=== PATIENT | male | born 1940 | race Caucasian/White ===

== ENCOUNTER 2017-06-24 08:05 | Observation (INO) | payer MEDICARE, OTHER ==
[~2017-06-24] VITALS: Ht 188 cm; Wt 97.5 kg
[~2017-06-24 08:05] MED LIST: ASPIR-LOW81 MG PO; CHOLESTEROL MED; HCTZ; LISINOPRIL; NEXIUM PO; VERAPAMIL
[2017-06-24 09:00] LABS: BASO % 0.2 % (0.0-2.0); EOS % 0.2 % (0-4.0); GRAN # 7.1 (1.4-6.5); GRAN % 83.4 % (42.2-75.2); HEMATOCRIT 38.1 % (42.0-52.0); HEMOGLOBIN 13.1 g/dl (13.5-18.0); LYMPH # 0.8 (1.2-3.4); LYMPH % 9.4 % (20.0-51.0); MEAN CELL VOLUME 100 fl (80.0-100.0); MEAN CORPUSCULAR HEMOGLOBIN 34 pg (27.0-31.0); MEAN CORPUSCULAR HGB CONC 34 g/dl (33.0-37.0); MEAN PLATELET VOLUME 11.5 fl (7.4-10.4); MONO # 0.5 (0.1-0.6); MONO % 6.3 % (1.7-9.3); PLATELET COUNT 74 K/mm3 (130-400); RED BLOOD COUNT 3.82 M/mm3 (4.20-5.60); REDCELL DISTRIBUTION WIDTH-CV 14.6 % (11.5-14.5); WHITE BLOOD COUNT 8.5 K/mm3 (4.8-10.8)
[2017-06-24 09:20] LABS: ALBUMIN 4.6 gm/dL (3.5-5.0); BILIRUBIN,TOTAL 2.8 mg/dL (0.0-1.0); C-REACTIVE PROTEIN 1.2 mg/dL (0.0-0.9); CALCIUM 9.5 mg/dL (8.4-10.2); CREATININE, serum 1.56 mg/dL (0.66-1.25); POTASSIUM 4.3 mmol/L (3.4-5.0); TOTAL PROTEIN 7.3 gm/dL (6.4-8.2)
[2017-06-24] MEDS ORDERED: PRIL40 PO (10:08)
[2017-06-24] MEDS ORDERED: HCTZ 25MG TAB25 MG PO (10:08)
[2017-06-24] MEDS ORDERED: ZESTRIL 20MG TA20 MG PO (10:09)
[2017-06-24] MEDS ORDERED: VERELAN240 MG PO (10:10)
[2017-06-24] MEDS ORDERED: ZOCOR 20MG20 MG PO (10:14)
[2017-06-24] MEDS ORDERED: UROCIT-K 5540 MG/TAB PO (10:15)
[2017-06-24] MEDS ORDERED: PRESERVISION1 SGL PO (10:15)
[2017-06-24] MEDS ORDERED: GLUCOSAMINE SU500 M2 PO (10:16)
[2017-06-24] MEDS ORDERED: NATURE'S BLEND100 M2 PO (10:16)
[2017-06-24 10:28] LABS: PH 7 (5-8); SQUAMOUS EPITHELIAL None Seen /hpf; URINE APPEARANCE Clear; URINE BACTERIA None Seen /hpf; URINE BILIRUBIN Negative (NEGATIVE); URINE BLOOD 2+ (NEGATIVE); URINE COLOR Yellow; URINE GLUCOSE Negative (NEGATIVE); URINE KETONE Negative (NEGATIVE); URINE RBC 20-50 /hpf
[2017-06-24 11:34] VITALS: BP 140/73; PULSE 67; TEMP 99.3
[2017-06-24 13:51] VITALS: BP 138/67; PULSE 59; TEMP 98.5
[2017-06-24 20:00] VITALS: BP 122/64; PULSE 59; TEMP 99
[2017-06-24 20:15] VITALS: BP 122/64; PULSE 58
[2017-06-24 20:30] VITALS: BP 108/75; PULSE 67
[2017-06-24 20:45] VITALS: BP 118/70; PULSE 69
== END 2017-06-24 20:55 | disposition home or self-care (01) ==
LOC: COL.ER 08:05 → SURG 10:41
PROVIDERS: Family Medicine
DX: N20.1 Calculus of ureter (principal); I10 Essential (primary) hypertension; E78.00 Pure hypercholesterolemia, unspecified; M19.90 Unspecified osteoarthritis, unspecified site; K21.9 Gastro-esophageal reflux disease without esophagitis; G47.33 Obstructive sleep apnea (adult) (pediatric)
CPT/HCPCS: C1769; C1894; C2617; G0378; J0690; J1100; J2270; J2405; J2704; J3010; J7030; Q9967

== ENCOUNTER 2018-02-19 13:10 | Day surgery (SDC) | payer MEDICARE, OTHER ==
[~2018-02-19] VITALS: Ht 188 cm; Wt 112.3 kg
[~2018-02-19 13:10] MED LIST changes: -ASPIR-LOW81 MG PO; +ASPIRIN E.C. 8181 MG PO; +GLUCOSAMINE & C1 CA2 PO; +HCTZ 25MG TAB25 MG PO; +NATURE'S BLEND100 M2 PO; +PRESERVISION1 SGL PO; +PRIL40 PO; +UROCIT-K 5540 MG/TAB PO; +VERELAN240 MG PO; +ZESTRIL 20MG TA20 MG PO; +ZOCOR 20MG20 MG PO
[2018-02-19] MEDS ORDERED: MULTIPLE VITAMI1 CAP PO (14:08)
[2018-02-19] MEDS ORDERED: TYLENOL 500MG500 MG PO (14:09)
[2018-02-19] MEDS ORDERED: ZYRTEC 10MG10 MG PO (14:09)
[2018-02-19] MEDS ORDERED: HYLAND LEG CRAMPS PO (14:10)
[2018-02-19 14:11] VITALS: BP 129/69; PULSE 61; TEMP 98.2
[2018-02-19 18:28] VITALS: BP 129/66; PULSE 50; TEMP 98.1
[2018-02-19 19:01] VITALS: BP 134/66; PULSE 52
[2018-02-19 19:41] VITALS: BP 115/55; PULSE 54
[2018-02-19 20:11] VITALS: BP 124/59; PULSE 56; TEMP 98
== END 2018-02-19 20:25 | disposition home or self-care (01) ==
LOC: SDCO 13:10 → SURG 18:05 → SDCO 20:25
DX: N20.0 Calculus of kidney (principal); I10 Essential (primary) hypertension; K21.9 Gastro-esophageal reflux disease without esophagitis; M19.90 Unspecified osteoarthritis, unspecified site; G47.33 Obstructive sleep apnea (adult) (pediatric); Z79.82 Long term (current) use of aspirin; Z87.891 Personal history of nicotine dependence; Z85.820 Personal history of malignant melanoma of skin; Z82.49 Family history of ischemic heart disease and other diseases of the circulatory system; Z83.511 Family history of glaucoma
CPT/HCPCS: OP; C1769; C1894; C2617; J0690; J1100; J1885; J2405; J2704; J3010; J7120

== ENCOUNTER 2018-03-05 14:17 | Day surgery (SDC) | payer MEDICARE, OTHER ==
[~2018-03-05] VITALS: Ht 185.4 cm; Wt 110.1 kg
[~2018-03-05 14:17] MED LIST changes: +HYLAND LEG CRAMPS PO; +MULTIPLE VITAMI1 CAP PO; +TYLENOL 500MG500 MG PO; +ZYRTEC 10MG10 MG PO
[2018-03-05 14:56] VITALS: BP 113/66; PULSE 64; TEMP 97.4
[2018-03-05 18:15] VITALS: BP 121/56; PULSE 62
[2018-03-05] MEDS ORDERED: PYRIDIUM 100MG100 MG PO (18:28)
[2018-03-05] MEDS ORDERED: NORCO 325 MG-51 TAB PO (18:28)
[2018-03-05] MEDS ORDERED: COLACE 100100 MG/CAP PO (18:29)
[2018-03-05 18:30] VITALS: BP 114/55; PULSE 60
[2018-03-05 18:45] VITALS: BP 118/66; PULSE 57
[2018-03-05 19:06] VITALS: BP 104/65; PULSE 72; TEMP 98.5
== END 2018-03-05 19:35 | disposition home or self-care (01) ==
LOC: SDCO 14:17
DX: N20.0 Calculus of kidney (principal); Z79.82 Long term (current) use of aspirin; I10 Essential (primary) hypertension; R20.2 Paresthesia of skin; G47.33 Obstructive sleep apnea (adult) (pediatric); Z79.899 Other long term (current) drug therapy; Z87.891 Personal history of nicotine dependence; Z85.820 Personal history of malignant melanoma of skin
CPT/HCPCS: C1769; C1894; C2617; J0690; J2704; J3010; J7120

== ENCOUNTER 2019-02-08 12:43 | Observation (INO) | payer MEDICARE, OTHER ==
[~2019-02-08] VITALS: Ht 188 cm; Wt 205.2 kg
[~2019-02-08 12:43] MED LIST changes: +COLACE 100100 MG/CAP PO; +NORCO 325 MG-51 TAB PO; +PYRIDIUM 100MG100 MG PO; +UROCIT-K 1010 MEQ PO; -UROCIT-K 5540 MG/TAB PO
[2019-02-08 13:19] LABS: BASO % 0.5 % (0.0-2.0); EOS # 0.3 (0.0-0.7); EOS % 4.5 % (0-4.0); GRAN # 3.6 (1.4-6.5); GRAN % 59.7 % (42.2-75.2); LYMPH # 1.1 (1.2-3.4); LYMPH % 18.7 % (20.0-51.0); MEAN CELL VOLUME 96 fl (80.0-100.0); MEAN CORPUSCULAR HEMOGLOBIN 34 pg (27.0-31.0); MEAN CORPUSCULAR HGB CONC 35 g/dl (33.0-37.0); MEAN PLATELET VOLUME 9.9 fl (7.4-10.4); MONO % 16.1 % (1.7-9.3); PLATELET COUNT 272 K/mm3 (130-400); RED BLOOD COUNT 3.53 M/mm3 (4.20-5.60); REDCELL DISTRIBUTION WIDTH-CV 15.6 % (11.5-14.5)
[2019-02-08 13:34] LABS: ALBUMIN 4.3 gm/dL (3.5-5.0); BILIRUBIN,TOTAL 1.9 mg/dL (0.0-1.0); C-REACTIVE PROTEIN 4.5 mg/dL (0.0-0.9); CALCIUM 9.7 mg/dL (8.4-10.2); CREATININE, serum 1.71 (0.66-1.25); POTASSIUM 4.2 mmol/L (3.4-5.0); TOTAL PROTEIN 7.1 gm/dL (6.4-8.2)
[2019-02-08 14:03] LABS: COLLECTION METHOD CLEAN CATCH
[2019-02-08 14:15] LABS: HYALINE CAST >12 /lpf; MUCOUS Present /lpf; PH 5 (5-8); SQUAMOUS EPITHELIAL None Seen /hpf; URINE APPEARANCE Clear; URINE BACTERIA None Seen /hpf; URINE BILIRUBIN Positive (NEGATIVE); URINE BLOOD Negative (NEGATIVE); URINE COLOR Amber; URINE GLUCOSE Negative (NEGATIVE); URINE KETONE Negative (NEGATIVE); URINE LEUKOCYTE ESTERASE Negative (NEGATIVE); URINE NITRATE Negative (NEGATIVE); URINE PROTEIN(semi-quant) Negative (NEGATIVE); URINE RBC 0-2 /hpf; URINE UROBILINOGEN >=4.0 mg/dL (NEGATIVE)
[2019-02-08] MEDS ORDERED: FOLIC ACID0.4 MG PO (15:18)
[2019-02-08] MEDS ORDERED: NAPROSYN500 MG PO (15:19)
[2019-02-08] MEDS ORDERED: FERRO-TIME325 MG PO (15:20)
[2019-02-08] MEDS ORDERED: MIRALAX PA17 GM/Dose PO (15:22)
[2019-02-08 16:59] LABS: INR 1.1 (0.8-3.0)
[2019-02-08 20:10] VITALS: BP 108/45; PULSE 71; TEMP 98.2
[2019-02-08] MEDS ORDERED: ASPI325T6 PO (21:21)
--- NOTE | 2019-02-08 23:00 | NUR ---
PT IN BED WITH HOB AT 15 DEGREE ANGLE, HAS MILD ABDOMINAL PAIN. PT HAS BEEN UP TO THE BATHROOM A FEW TIMES WITH DIARRHEA, GOT STOOL SAMPLE FOR LAB. STOOL HAD BLOOD IN IT. PT RESTING IN BED WITH CALL LIGHT WITHIN REACH. TYLENOL GIVEN FOR ABDOMINAL PAIN.
[2019-02-08 23:16] VITALS: BP 107/56; PULSE 73; TEMP 99
--- NOTE | 2019-02-09 01:14 | NUR ---
PT SLEEPING/RESTING WITH NO S/S OF PAIN OR DISCOMFORT NOTED. CALL LIGHT WITHIN REACH.
[2019-02-09 04:14] VITALS: BP 106/53; PULSE 74; TEMP 98.6
[2019-02-09 06:26] LABS: BASO % 0.7 % (0.0-2.0); EOS # 0.2 (0.0-0.7); EOS % 5.5 % (0-4.0); GRAN # 2.5 (1.4-6.5); GRAN % 56.3 % (42.2-75.2); HEMOGLOBIN 10.1 g/dl (13.5-18.0); LYMPH % 21.8 % (20.0-51.0); MEAN CELL VOLUME 96 fl (80.0-100.0); MEAN CORPUSCULAR HEMOGLOBIN 34 pg (27.0-31.0); MEAN CORPUSCULAR HGB CONC 35 g/dl (33.0-37.0); MEAN PLATELET VOLUME 9.9 fl (7.4-10.4); MONO # 0.7 (0.1-0.6); MONO % 15.2 % (1.7-9.3); PLATELET COUNT 199 K/mm3 (130-400); RED BLOOD COUNT 2.96 M/mm3 (4.20-5.60); REDCELL DISTRIBUTION WIDTH-CV 15.4 % (11.5-14.5)
[2019-02-09 06:34] LABS: CALCIUM 8.7 mg/dL (8.4-10.2); CREATININE, serum 1.34 (0.66-1.25)
[2019-02-09 06:36] LABS: HEMATOCRIT 28.5 % (42.0-52.0)
--- NOTE | 2019-02-09 07:25 | NUR ---
UNEVENTFUL NIGHT, PT WAS UP A FEW TIMES BECAUSE HE STILL HAS DIARRHEA. PT ADVISES THAT HE CANNOT SEE WELL. ALSO HE IS ON DAY 21 OF POST KNEE REPLACEMENT SURGERY. PT USES A WALKER TO AMBULATE AND WILL GO TO A CANE NEXT WEEK. TYLENOL WAS GIVEN FOR PAIN REQUESTED. PAIN AT 3/10 IN LOWER ABDOMEN THAT IS CRAMPY. NO FURTHER NEEDS, CALL LIGHT WITHIN REACH.
[2019-02-09 08:48] VITALS: BP 124/49; PULSE 75; TEMP 98.2
--- NOTE | 2019-02-09 08:49 | NUR ---
Pt is awake and A/Ox4, resting in bed watching TV. He denies pain at this time. IVF are infusing into right AC without difficulty. He does report having continued loose stools last night and this morning but feels like they have slowed in frequency. Pt denies any other needs, will monitor.
--- NOTE | 2019-02-09 10:38 | NUR ---
Pt is sleeping soundly in bed.
[2019-02-09 11:09] VITALS: BP 120/58; PULSE 76; TEMP 98.6
--- NOTE | 2019-02-09 13:18 | NUR ---
Patient lives at home ([facility] with his (Renetta) and plans to return home upon discharge. Patient is retired from the [employer], and he is moderately indpendent with daily living activities with support from his as needed. Patient uses a walker for mobility assistance as needed, his primary care physician is Dr. Jaron Quinonez, his pharmacy is [facility], and he does have advance directives completed. No further needs and social media coordinator will follow as needed.
[2019-02-09 14:22] LABS: HEMOGLOBIN 10.2 g/dl (13.5-18.0)
[2019-02-09 14:24] LABS: HEMATOCRIT 28.8 % (42.0-52.0)
[2019-02-09 16:12] VITALS: BP 128/64; PULSE 73; TEMP 98.6
--- NOTE | 2019-02-09 16:51 | NUR ---
Pt has had an overall uneventful shift. He reports that the protonix given to him "helped a lot." Rating pain a 2/10. Tolerating PO. at bedside, denies any other needs.
--- NOTE | 2019-02-09 20:00 | NUR ---
Shift assessment complete. Pt resting in bed, awake, a&o, cooperative c cares. Pt reports continued c/o diarrhea; pt assisted c shower at this time due to incontinence pt describes as "a blow out". Pt denies nausea, abd pain or other c/o. INT patent. Pt denies further needs. Call light in reach, wi at bedside. Will monitor.
[2019-02-09 21:18] VITALS: BP 127/65; PULSE 74; TEMP 98.1
[2019-02-09 21:56] LABS: HEMOGLOBIN 10.6 g/dl (13.5-18.0)
[2019-02-09 22:11] LABS: HEMATOCRIT 30.6 % (42.0-52.0)
[2019-02-10] VITALS (9 sets, daily range): BP systolic 116–130; BP diastolic 56–69; PULSE 62–70; TEMP 97–99.1
[2019-02-10 02:16] LABS: HEMATOCRIT 28.4 % (42.0-52.0); HEMOGLOBIN 9.9 g/dl (13.5-18.0)
--- NOTE | 2019-02-10 05:59 | NUR ---
Pt resting in bed, condition unchanged. Pt has rested well this shift c very few needs. Diarrhea x2 episodes reported, incontinent x1. No needs at this time. Call light in reach.
[2019-02-10 06:19] LABS: BASO % 0.7 % (0.0-2.0); EOS # 0.3 (0.0-0.7); EOS % 6.3 % (0-4.0); GRAN # 2.4 (1.4-6.5); GRAN % 53.4 % (42.2-75.2); LYMPH # 1.2 (1.2-3.4); LYMPH % 27.3 % (20.0-51.0); MEAN CELL VOLUME 97 fl (80.0-100.0); MEAN CORPUSCULAR HGB CONC 35 g/dl (33.0-37.0); MEAN PLATELET VOLUME 9.8 fl (7.4-10.4); MONO # 0.5 (0.1-0.6); MONO % 11.4 % (1.7-9.3); PLATELET COUNT 192 K/mm3 (130-400); RED BLOOD COUNT 2.88 M/mm3 (4.20-5.60)
[2019-02-10 06:32] LABS: HEMATOCRIT 27.9 % (42.0-52.0); HEMOGLOBIN 9.8 g/dl (13.5-18.0); MEAN CORPUSCULAR HEMOGLOBIN 34 pg (27.0-31.0)
[2019-02-10 06:39] LABS: CALCIUM 8.7 mg/dL (8.4-10.2); CREATININE, serum 1.12 (0.66-1.25)
--- NOTE | 2019-02-10 11:05 | NUR ---
Initial visit; Patient thanked Business Services Vice President for looking in on him and letting his evangelical family and Destination Imagination Coordinator know of his hospitalization.
--- NOTE | 2019-02-10 15:20 | NUR ---
Patient left for EGD procedure via stretcher.
--- NOTE | 2019-02-10 16:15 | NUR ---
Patient returned from procedure. 15 min vital sign checks initiated.
--- NOTE | 2019-02-10 20:09 | NUR ---
PT AMBULATING IN ROOM. PT ATE A BANANA BECAUSE HIS TOLD HIM HE NEEDED IT. PT'S IV WAS LEAKING, DC, CATHETER INTACT, APPLIED PRESSURE TILL BLEEDING STOPPED, AND PUT PROTECTIVE DRSG ON. STARTED NEW 20G IV IN RIGHT FOREARM, X1 ATTEMPT WITH NO DIFFICULTIES AND PT TOLERATED WELL. PT IN RECLINER AT THIS TIME WITH NO FURTHER NEEDS AND CALL LIGHT WITHIN REACH. NO PAIN IN ABDOMEN.
--- NOTE | 2019-02-11 00:23 | NUR ---
PT REQUESTED THAT IV FLUIDS NOT RUN WHILE HE IS TRYING TO SLEEP AND THAT WE CAN PUT IT BACK ON AT 0700. IV FLUIDS STOPPED AT THIS TIME PER PT'S REQUEST.
[2019-02-11 03:56] VITALS: BP 144/61; PULSE 64; TEMP 98.3
[2019-02-11 07:34] LABS: BASO % 0.7 % (0.0-2.0); EOS # 0.3 (0.0-0.7); EOS % 7.4 % (0-4.0); GRAN # 2.5 (1.4-6.5); HEMOGLOBIN 10.1 g/dl (13.5-18.0); LYMPH # 1.3 (1.2-3.4); LYMPH % 27.5 % (20.0-51.0); MEAN CELL VOLUME 96 fl (80.0-100.0); MEAN CORPUSCULAR HEMOGLOBIN 34 pg (27.0-31.0); MEAN CORPUSCULAR HGB CONC 35 g/dl (33.0-37.0); MEAN PLATELET VOLUME 9.9 fl (7.4-10.4); MONO # 0.5 (0.1-0.6); PLATELET COUNT 203 K/mm3 (130-400); RED BLOOD COUNT 2.98 M/mm3 (4.20-5.60); REDCELL DISTRIBUTION WIDTH-CV 14.6 % (11.5-14.5)
[2019-02-11 07:36] LABS: HEMATOCRIT 28.5 % (42.0-52.0)
[2019-02-11 07:39] LABS: CALCIUM 8.7 mg/dL (8.4-10.2); CREATININE, serum 1.09 (0.66-1.25); POTASSIUM 3.8 mmol/L (3.4-5.0)
[2019-02-11 07:42] VITALS: BP 126/54; PULSE 65; TEMP 98.7
[2019-02-11] MEDS ORDERED: PROTONIX 40MG T40 MG PO (09:16)
[2019-02-11] MEDS ORDERED: IMODIUM 2MG CAPS2 MG PO (09:18)
--- NOTE | 2019-02-11 09:54 | NUR ---
Patient resting in bed on phone with upon entry. Assessment complete. Lung sounds clear, heart sounds normal. Bowel sounds present X4. Pulses strong bilaterally. Patient denies SOB, pain, dizziness. patient stated he had episode of diarrhea overnight and once this morning. "it wasn't like it has been." Patient is being discharged. Right forearm IV discontinued. Call light within reach. Patient is going to shower prior to discharge.
--- NOTE | 2019-02-11 12:45 | NUR ---
patient sitting in chair with at bedside. Discharge instructions discussed, all questions answered. Patient escorted out via wheelchair by aide. No other questions. INT IV discontinued, catheter tip intact, no complications.
[2019-02-11 16:10] LABS: HELICOBACTER PYLORI STOOL AG Negative (Negative)
== END 2019-02-11 12:40 | disposition home or self-care (01) ==
LOC: COL.ER 12:43 → MEDICAL 18:25
PROVIDERS: Emergency Medicine; Family Medicine; Nurse Practitioner; Physician Assistant; ADMIT Hospitalist
DX: K29.30 Chronic superficial gastritis without bleeding (principal); K92.1 Melena; D50.0 Iron deficiency anemia secondary to blood loss (chronic); E86.0 Dehydration; R19.7 Diarrhea, unspecified; E78.5 Hyperlipidemia, unspecified; I12.9 Hypertensive chronic kidney disease with stage 1 through stage 4 chronic kidney disease, or unspecified chronic kidney disease; N18.9 Chronic kidney disease, unspecified; Z96.659 Presence of unspecified artificial knee joint; F17.210 Nicotine dependence, cigarettes, uncomplicated
CPT/HCPCS: C9113; G0378; J2250; J2270; J2405; J3010; J7030

== ENCOUNTER → 2021-06-30 | Outpatient (CLI) | payer MEDICARE, OTHER ==
[~2021-06-30] MED LIST changes: +AMOXICILLIN 8751 TAB PO; +ARICEPT10 MG PO; +ASPI325T6 PO; +ASPIRIN 32325 MG/TAB PO; +FERRO-TIME325 MG PO; +FLONASEALLERGY NS; +FOLIC ACID0.4 MG PO; +IMODIUM 2MG CAPS2 MG PO; +LEXAPRO 5MG5 MG PO; +LODINE400 MG PO; +MIRALAX PA17 GM/Dose PO; +NAPROSYN500 MG PO; +PRINIVIL20 MG PO; +PROTONIX 40MG T40 MG PO; +SINGULAIR 110 MG/TAB PO; +VITAMIN C500 MG PO; +VITAMIN D 400400 IU PO
[2021-06-30 13:25] LABS: BASO # 0.1 (0.0-0.2); BASO % 0.8 % (0.0-2.0); EOS # 0.4 (0.0-0.7); EOS % 3.8 % (0-4.0); GRAN # 6.9 (1.4-6.5); GRAN % 72.3 % (42.2-75.2); HEMOGLOBIN 10.9 g/dl (13.5-18.0); LYMPH % 10.3 % (20.0-51.0); MEAN CELL VOLUME 95 fl (80.0-100.0); MEAN CORPUSCULAR HEMOGLOBIN 34 pg (27.0-31.0); MEAN CORPUSCULAR HGB CONC 36 g/dl (33.0-37.0); MEAN PLATELET VOLUME 10.8 fl (7.4-10.4); MONO # 1.1 (0.1-0.6); MONO % 11.9 % (1.7-9.3); PLATELET COUNT 309 K/mm3 (130-400); REDCELL DISTRIBUTION WIDTH-CV 15.7 % (11.5-14.5)
[2021-06-30 13:27] LABS: ALBUMIN 4.1 gm/dL (3.5-5.0); BILIRUBIN,TOTAL 2.5 mg/dL (0.0-1.0); CALCIUM 9.4 mg/dL (8.4-10.2); CREATININE, serum 2.83 (0.66-1.25); TOTAL PROTEIN 6.3 gm/dL (6.4-8.2)
[2021-06-30 13:33] LABS: HEMATOCRIT 30.5 % (42.0-52.0)
[2021-06-30 13:51] LABS: POTASSIUM 5.9 mmol/L (3.4-5.0)
[2021-06-30 15:23] LABS: ERYTHROCYTE SEDIMENTATION RATE 52 mm/hr (0-30)
[2021-06-30 17:39] LABS: CLOSTRIDIUM DIFF A/B NEG; CLOSTRIDIUM DIFF A/B INTERP No C.diff present
== END ==
LOC: ZCOL.LAB 13:13
PROVIDERS: Internal Medicine
DX: A09 Infectious gastroenteritis and colitis, unspecified (principal)

== ENCOUNTER 2021-07-01 21:55 | Inpatient (IN) | payer MEDICARE, OTHER ==
[~2021-07-01] VITALS: Ht 188 cm; Wt 106.8 kg
[~2021-07-01 21:55] MED LIST changes: -AMOXICILLIN 8751 TAB PO; -ARICEPT10 MG PO; -LODINE400 MG PO; -PRINIVIL20 MG PO
[2021-07-01 23:07] LABS: MEAN CELL VOLUME 94 fl (80.0-100.0); MEAN CORPUSCULAR HGB CONC 37 g/dl (33.0-37.0); MEAN PLATELET VOLUME 9.9 fl (7.4-10.4); PLATELET COUNT 242 K/mm3 (130-400); RED BLOOD COUNT 2.79 M/mm3 (4.20-5.60); REDCELL DISTRIBUTION WIDTH-CV 15.2 % (11.5-14.5)
[2021-07-01 23:08] LABS: HEMATOCRIT 26.2 % (42.0-52.0); HEMOGLOBIN 9.6 g/dl (13.5-18.0); MEAN CORPUSCULAR HEMOGLOBIN 34 pg (27.0-31.0)
[2021-07-01 23:19] LABS: ALBUMIN 3.8 gm/dL (3.5-5.0); BILIRUBIN,TOTAL 1.9 mg/dL (0.0-1.0); CALCIUM 8.7 mg/dL (8.4-10.2); CREATININE, serum 2.72 (0.66-1.25); POTASSIUM 5.4 mmol/L (3.4-5.0); TOTAL PROTEIN 6.4 gm/dL (6.4-8.2)
[2021-07-02 00:20] LABS: ANISOCYTOSIS 1+; BAND 6 % (0-10); BASOPHIL 1 % (0-2); EOSINOPHIL 6 % (0-4); LYMPHOCYTE 17 % (20.0-51.0); NEUTROPHILS 57 % (42.0-75.2); PLATELET ESTIMATE NORMAL (NORMAL)
[2021-07-02 05:29] LABS: MEAN CELL VOLUME 96 fl (80.0-100.0); MEAN CORPUSCULAR HGB CONC 36 g/dl (33.0-37.0); MEAN PLATELET VOLUME 10.2 fl (7.4-10.4); PLATELET COUNT 224 K/mm3 (130-400); RED BLOOD COUNT 2.25 M/mm3 (4.20-5.60); REDCELL DISTRIBUTION WIDTH-CV 15.2 % (11.5-14.5)
[2021-07-02 05:33] LABS: HEMATOCRIT 21.6 % (42.0-52.0); HEMOGLOBIN 7.7 g/dl (13.5-18.0); MEAN CORPUSCULAR HEMOGLOBIN 34 pg (27.0-31.0)
[2021-07-02 05:38] LABS: CALCIUM 8.2 mg/dL (8.4-10.2); CREATININE, serum 2.29 (0.66-1.25); POTASSIUM 5.1 mmol/L (3.4-5.0)
[2021-07-02 06:44] LABS: BAND 8 % (0-10); BASOPHIL 2 % (0-2); EOSINOPHIL 7 % (0-4); LYMPHOCYTE 18 % (20.0-51.0); NEUTROPHILS 57 % (42.0-75.2)
[2021-07-02 06:45] LABS: PLATELET ESTIMATE NORMAL (NORMAL)
[2021-07-02 06:47] LABS: ANISOCYTOSIS 1+
[2021-07-02 07:59] LABS: COLLECTION METHOD CLEAN CATCH
[2021-07-02 08:09] LABS: PH 5 (5-8); SQUAMOUS EPITHELIAL None Seen /hpf; URINE APPEARANCE Clear; URINE BACTERIA None Seen /hpf; URINE BILIRUBIN Negative (NEGATIVE); URINE BLOOD Negative (NEGATIVE); URINE COLOR Straw; URINE GLUCOSE Negative (NEGATIVE); URINE KETONE Negative (NEGATIVE); URINE LEUKOCYTE ESTERASE Negative (NEGATIVE); URINE NITRATE Negative (NEGATIVE); URINE PROTEIN(semi-quant) Negative (NEGATIVE); URINE RBC 0-2 /hpf; URINE UROBILINOGEN Negative (NEGATIVE)
[2021-07-02 09:29] VITALS: BP 123/56; PULSE 67; TEMP 98
--- NOTE | 2021-07-02 09:53 | NUR ---
Pt arrived to medical unit room 354 around 0920. Oriented pt to room. Admission assessment and med rec updated. Morning meds given per orders. NS running at 125 ml/hr. Assisted pt in ordering breakfast. Denies further needs at this time. Call light in reach.
[2021-07-02 11:09] VITALS: BP 108/48; PULSE 64; TEMP 98.2
--- NOTE | 2021-07-02 12:02 | NUR ---
Plan is to return home. SW met with patient about care support. Patient reports that he is having diarrhea and for appro 3 weeks. Patient reports that his PCP is Dr. Freeman and if needed her would like to go to [facility] for rehab. Patient reports that he would like his bowel situation and low blood pressure addressed before discharging. Patient reports that his is Renetta . Avaen reports that he also works with Dr. Cosme Claire at the [facility] due to his macular degeneration. He reports that he receives two injections in his eyes to help with his sight and has other medications that he is on 2x day. . Patient reports the use of a cane no o2 needs. Jaron Girard is medication provider. Will screen for [facility]. Educated on supports. Will follow for care changes.
[2021-07-02 15:45] VITALS: BP 104/51; PULSE 66; TEMP 98.6
[2021-07-02 19:39] VITALS: BP 105/49; PULSE 64; TEMP 98.5
--- NOTE | 2021-07-02 20:30 | NUR ---
Initial shift assessment done- pleasant, alert/oriented x4, IV fluids of NS at 125cc/hr, Tele on, Denies pain/SOB. When asked about how often he is having loose stools states about 3-4 a day, instructed to call for assistance to bathroom and to let the nurse know with each BM- will put bed alarm on when leaves tonight. Tele on. States he is not eating much due to no appetite. VSS
[2021-07-02 23:32] VITALS: BP 98/42; PULSE 61; TEMP 98.3
[2021-07-03 03:24] VITALS: BP 105/56; PULSE 61; TEMP 98.2
--- NOTE | 2021-07-03 05:19 | NUR ---
Fairly quiet night-- did get up to bathroom every 2-3 hours to urinate-- had only 2 liquid/loose stools during the night also- specimen sent to lab, GI panel negative, occult positive, tele on, SCD,s on, VSS-did have one B/P 98/42, then up to 105/56. Continues with NS at 125cc/hr
[2021-07-03 08:00] VITALS: BP 106/67; PULSE 59; TEMP 98.6
--- NOTE | 2021-07-03 08:20 | NUR ---
Shift assessment complete. Pt resting in bed. A&Ox4. Heart RRR. Lungs CTA. Continues to have loose, dark stools. Denies pain. Vitals stable. Continuing to monitor.
[2021-07-03] MEDS ORDERED: ARICEPT10 MG PO (11:07)
[2021-07-03] MEDS ORDERED: PROTONIX 40MG T40 MG PO (11:08)
[2021-07-03] MEDS ORDERED: LODINE400 MG PO (11:11)
[2021-07-03] MEDS ORDERED: ZYRTEC 10MG10 MG PO (11:11)
--- NOTE | 2021-07-03 11:35 | NUR ---
SW received a call from [facility] staff due to screening patient for care. [facility] staff member Adrien stated that they would accept patient when ready to DC. SW contacted patient's nurse, nurse provided that patient may be here a few days. SW assist with sending updates on this day. SW will continue to follow.
[2021-07-03 11:36] VITALS: BP 103/54; PULSE 56; TEMP 98.6
[2021-07-03 12:18] LABS: MEAN CELL VOLUME 98 fl (80.0-100.0); MEAN CORPUSCULAR HGB CONC 35 g/dl (33.0-37.0); PLATELET COUNT 188 K/mm3 (130-400); RED BLOOD COUNT 2.31 M/mm3 (4.20-5.60); REDCELL DISTRIBUTION WIDTH-CV 15.5 % (11.5-14.5)
[2021-07-03 12:23] LABS: HEMATOCRIT 22.7 % (42.0-52.0); HEMOGLOBIN 7.9 g/dl (13.5-18.0); MEAN CORPUSCULAR HEMOGLOBIN 34 pg (27.0-31.0)
[2021-07-03 12:30] LABS: CALCIUM 8.3 mg/dL (8.4-10.2); CREATININE, serum 1.53 (0.66-1.25); POTASSIUM 4.7 mmol/L (3.4-5.0)
[2021-07-03 14:03] LABS: ANISOCYTOSIS 1+; BAND 3 % (0-10); EOSINOPHIL 5 % (0-4); LYMPHOCYTE 28 % (20.0-51.0); NEUTROPHILS 59 % (42.0-75.2); PLATELET ESTIMATE NORMAL (NORMAL)
[2021-07-03 17:03] VITALS: BP 102/51; PULSE 58; TEMP 98.7
[2021-07-03 19:56] VITALS: BP 119/53; PULSE 55; TEMP 99.3
[2021-07-03 23:48] VITALS: BP 117/50; PULSE 55; TEMP 98.3
[2021-07-04 04:25] VITALS: BP 101/48; PULSE 56; TEMP 99.4
--- NOTE | 2021-07-04 05:33 | NUR ---
PT HAD UNEVENTFUL NIGHT, ANTIBIOTICS ADMINISTERED ORDERED, 02 REMAINS ROOM AIR, PT CONTINUES TO HAVE DIAHHREA DURING THIS SHIFT BUT PT STATES" NOT NEARLY MUCH BEFORE" , PT DENIES PAIN,N,V. ALL NEEDS MET. CALL LIGHT WITHIN REACH.
[2021-07-04 07:50] VITALS: BP 136/68; PULSE 59; TEMP 98
--- NOTE | 2021-07-04 09:56 | NUR ---
SCHEDULED MEDICATIONS GIVEN. SHIFT ASSESSMENT PREFORMED. GENERALIZED BRUISING NOTED. PATIENT DENIES ANY PAIN, DISCOMFORT, SOA, OR FURTHER NEEDS AT THIS TIME. CALL LIGHT IN REACH. FALL PRECAUTIONS IN PLACE. VSS.
--- NOTE | 2021-07-04 12:04 | NUR ---
The patient is to tentatively d/c tomorrow, 07/05. MARYAN notified and faxed updates to Niya at [facility]. SW met with the patient to review d/c plan. The patient's , Renetta, was on speaker phone. The patient and his were in agreement to the plan. MARYAN presented and read the IM form outloud to the patient. The patient verbalized understanding and signed the form. SW provided him with a copy. *Discharge plan: [facility]*
--- NOTE | 2021-07-04 12:52 | NUR ---
Initial visit; Patientthanked Fha Underwriter for looking in on him and offering God's blessings.
[2021-07-04 13:29] VITALS: BP 130/61; PULSE 65; TEMP 98.1
[2021-07-04 19:20] VITALS: BP 137/69; PULSE 57; TEMP 98.1
[2021-07-04 23:53] VITALS: BP 136/67; PULSE 55; TEMP 98
[2021-07-05 04:30] VITALS: BP 126/56; PULSE 56; TEMP 98.6
--- NOTE | 2021-07-05 05:21 | NUR ---
PT HAD UNEVENTFUL NIGHT,PT REMAINS A/OX4, PLEASANT AND COOPERATIVE, INDEPENDENT. ANTIBIOTICS ADMINISTERED ORDERED, PT DOES REPORT 2 EPISODES OF DIAHHREA OVER NIGHT. PT CONTINUES TO REFUSE SCD'S HE ALSO DID PREVIOUS NIGHT. THIS NURSE REVIEWED IMPORTANCE OF SCD, PT VERBALIZES UNDERSTANDING. PT EXPRESSES NO ADDITONAL NEEDS AT THIS TIME. ALL NEEDS MET. CALL LIGHT WITHIN REACH.
[2021-07-05 07:03] LABS: MEAN CELL VOLUME 99 fl (80.0-100.0); MEAN CORPUSCULAR HGB CONC 34 g/dl (33.0-37.0); MEAN PLATELET VOLUME 10.1 fl (7.4-10.4); PLATELET COUNT 177 K/mm3 (130-400); RED BLOOD COUNT 2.43 M/mm3 (4.20-5.60)
[2021-07-05 07:07] LABS: HEMATOCRIT 24.1 % (42.0-52.0); HEMOGLOBIN 8.2 g/dl (13.5-18.0); MEAN CORPUSCULAR HEMOGLOBIN 34 pg (27.0-31.0)
[2021-07-05 07:15] LABS: CALCIUM 8.7 mg/dL (8.4-10.2); CREATININE, serum 1.48 (0.66-1.25); POTASSIUM 4.6 mmol/L (3.4-5.0)
--- NOTE | 2021-07-05 07:47 | NUR ---
SCHEDULED MEDICATIONS GIVEN. SHIFT ASSESSMENT PREFORMED. ZOSYN RUNNING ORDERED. PATIENT SITTING ON THE EDGE OF BED EATING BREAKFAST AT THIS TIME. DENIES ANY PAIN, DISCOMFORT, OR FURTHER NEEDS AT THIS TIME. CALL LIGHT IN REACH. FALL PRECAUTIONS IN PLACE.
[2021-07-05 07:51] VITALS: BP 139/59; PULSE 57; TEMP 98.4
[2021-07-05 09:54] LABS: BAND 16 % (0-10); BASOPHIL 1 % (0-2); EOSINOPHIL 5 % (0-4); LYMPHOCYTE 18 % (20.0-51.0); METAMYELOCYTE 3 % (0-0); NEUTROPHILS 55 % (42.0-75.2); NUCLEATED RED BLOOD CELL 1 (0-6); PLATELET ESTIMATE NORMAL (NORMAL)
[2021-07-05] MEDS ORDERED: HCTZ 25MG TAB25 MG PO (11:04)
[2021-07-05] MEDS ORDERED: PRINIVIL20 MG PO (11:04)
[2021-07-05] MEDS ORDERED: AMOXICILLIN 8751 TAB PO (13:24)
--- NOTE | 2021-07-05 13:36 | NUR ---
The patient is to discharge today, 07/05, to [facility] for a skilled stay. Transportation was scheduled at 1445, via [facility]. SW informed the patient, his , and RN of the time. They were both in agreement to the time. No additional needs at this time.
--- NOTE | 2021-07-05 14:00 | NUR ---
PATIENT DEEMED FIT FOR DISCHARGE TO [facility]. IV DC'D CATHETER INTACT, NO SIGNS OF PHLEBITIS. PATIENT DENIES ANY PAIN, DISCOMFORT, SOA, OR FURTHER NEEDS AT THIS TIME. VSS. PATIENT ESCORTED FROM THE BUILDING VIA WHEELCHAIR BY VIA ADORE STAFF. [facility] STAFF TO TRANSPORT.
[2021-07-05 14:17] VITALS: BP 139/59; PULSE 57; TEMP 98.4
--- NOTE | 2021-07-05 16:18 | NUR ---
REPORT GIVEN JOSE CRUZ FRIED.
== END 2021-07-05 14:45 | DRG 392 ==
LOC: COL.ER 21:55 → MEDICAL 07-02 00:18
PROVIDERS: Emergency Medicine; Nurse Practitioner Family; Physician Assistant
DX: K52.9 Noninfective gastroenteritis and colitis, unspecified (principal); N17.9 Acute kidney failure, unspecified; E87.1 Hypo-osmolality and hyponatremia; E87.2 Acidosis; E78.5 Hyperlipidemia, unspecified; N18.9 Chronic kidney disease, unspecified; I12.9 Hypertensive chronic kidney disease with stage 1 through stage 4 chronic kidney disease, or unspecified chronic kidney disease; I95.9 Hypotension, unspecified; E87.5 Hyperkalemia; D64.9 Anemia, unspecified; R53.1 Weakness; Z96.652 Presence of left artificial knee joint; Z20.822 Contact with and (suspected) exposure to COVID-19; Z85.820 Personal history of malignant melanoma of skin; Z79.82 Long term (current) use of aspirin; Z87.442 Personal history of urinary calculi; Z90.49 Acquired absence of other specified parts of digestive tract; K63.9 Disease of intestine, unspecified; K80.20 Calculus of gallbladder without cholecystitis without obstruction; N20.0 Calculus of kidney; K44.9 Diaphragmatic hernia without obstruction or gangrene
CPT/HCPCS: 99223-AI; 99232-AI; 99233-AI; 99239; J2543; J7030

== ENCOUNTER → 2021-07-01 | Outpatient (CLI) | payer MEDICARE, OTHER ==
[2021-07-01 11:41] LABS: ALBUMIN 3.9 gm/dL (3.5-5.0); BILIRUBIN,TOTAL 2.5 mg/dL (0.0-1.0); CALCIUM 9.3 mg/dL (8.4-10.2); CREATININE, serum 3.11 (0.66-1.25); POTASSIUM 5.2 mmol/L (3.4-5.0); TOTAL PROTEIN 6.2 gm/dL (6.4-8.2)
== END ==
LOC: ZCOL.LAB 10:35
PROVIDERS: Internal Medicine
DX: E87.5 Hyperkalemia (principal)